=== PATIENT | female | born 1975 | race Caucasian/White ===

== ENCOUNTER 2017-04-30 17:33 | Emergency (ER) | payer OTHER ==
[2017-04-30 17:49] VITALS: TEMP 98.2; BMI 33.7
--- NOTE | 2017-04-30 18:13 | PDOC ---
History of Present Illness - General Chief Complaint: Blood Pressure Problem Stated Complaint: PRESSURE PROBLEM (PCP SENT) Time Seen by Provider: 04/30/17 17:58 History Source: Patient - History of Present Illness Severity: severe Associated Symptoms: reports: headaches, nausea/vomiting. denies: chest pain, shortness of breath Past History - Past Medical History Allergies/Adverse Reactions: Allergies Allergy/AdvReac Type Severity Reaction Status Date / Time No Known Allergies Allergy Verified 01/16/16 15:11 Home Medications: Ambulatory Orders Ibuprofen [Motrin -] 600 mg PO TID #21 tablet 01/16/16 Amlodipine Besylate 10 mg PO DAILY 30 Days 04/30/17 Asthma: No Cancer: No Cardiac Disorders: No Diabetes: Yes (GESTATIONAL) HTN: Yes Suicide Attempt (Hx): No Seizures: No Thyroid Disease: No - Surgical History Abdominal Surgery: Yes Appendectomy: Yes Cholecystectomy: Yes - Immunization History Td Vaccination: Yes Immunization Up to Date: Yes - Psycho/Social/Smoking Cessation Hx Anxiety: No Suicidal Ideation: No Smoking Status: No Smoking History: Current every day smoker Have you smoked in the past 12 months: Yes Number of Cigarettes Smoked Daily: 4 Information on smoking cessation initiated: Yes 'Breaking Loose' booklet given: 04/30/17 Hx Alcohol Use: No Drug/Substance Use Hx: No Substance Use Type: None Hx Substance Use Treatment: No Review of Systems - Review of Systems Constitutional: No: Chills, Fever Respiratory: No: Shortness of Breath Cardiac (ROS): No: Chest Pain ABD/GI: Yes: Nausea. No: Vomiting Musculoskeletal: No: Back Pain, Neck Pain Neurological: Yes: Headache, Numbness. No: Tingling, Weakness, Dizziness *Physical Exam - Vital Signs Last Vital Signs Temp Pulse Resp BP Pulse Ox 98.2 F 88 18 180/110 100 04/30/17 17:37 04/30/17 17:37 04/30/17 17:37 04/30/17 17:43 04/30/17 17:37 - Physical Exam General Appearance: Yes: Appropriately Dressed, Mild Distress HEENT: positive: Normal Voice. negative: Scleral Icterus (R), Scleral Icterus ( L) Neck: positive: Supple Respiratory/Chest: positive: Lungs Clear, Normal Breath Sounds. negative: Respiratory Distress Cardiovascular: positive: Regular Rate, S1, S2 Gastrointestinal/Abdominal: positive: Soft. negative: Tender Integumentary: positive: Dry, Warm Neurologic: positive: Fully Oriented, Alert, Normal Mood/Affect, Motor Strength 5/5, Finger to Nose. negative: Facial Droop ED Treatment Course - LABORATORY CBC & Chemistry Diagram: 04/30/17 18:22 04/30/17 18:22 - RADIOLOGY Radiology Studies Ordered: Category Date Time Status HEAD CT WITHOUT CONTRAST [CT] Stat CT Scan 04/30/17 17:59 Ordered Medical Decision Making - Medical Decision Making 04/30/17 18:08 42-year-old female, history of hypertension, was on meds but taken off several years ago as blood pressure was well controlled as per patient, states for the past several months blood pressure has been "getting higher" at doctor's visit and today was 180/110 and sent to ED by her PMD. Patient complaining of severe frontal headache that started at noon today and nausea 2 weeks with intermittent numbness to fingers of unclear duration. Patient denies dizziness , visual changes, slurred speech, focal weakness, chest pain or shortness of breath See exam Hypertensive crises BP 180/110 w/ unremarkable exam otherwise -ekg/cxr/labs r/o EOD -manage BP -Pain control -discuss dispo w/ Dr Pro (pmd) 04/30/17 18:18 05/02/17 08:16 *DC/Admit/Observation/Transfer Diagnosis at time of Disposition: Hypertension - Discharge Dispostion Disposition: HOME Condition at time of disposition: Stable - Prescriptions Prescriptions: Amlodipine Besylate 10 mg PO DAILY 30 Days - Referrals Referrals: Meghan Pro MD [Primary Care Provider] - - Patient Instructions Printed Discharge Instructions: DI for High Blood Pressure Additional Instructions: Rx: Amlodipine 10mg take 1 tablet daily I SPOKE TO DR. SHARPE WHO WANTS YOU TO; FOLLOW UP WITH DR. MILIAN ON WEDNESDAY MORNING TAKE AMLODIPINE 10 MG 1 TABLET DAILY return to the ER for severe/persistent/worsening symptoms
[2017-04-30] MEDS ORDERED: LABETALOL HCL 5 MG/1 ML (100MG/20 ML VIAL) IVPUSH ONE (18:14)
[2017-04-30] MEDS ORDERED: LABETALOL HCL 5 MG/1 ML (200MG/40ML VIAL) IVPB ONE (18:15)
[2017-04-30] MEDS: METOCLOPRAMIDE HCL INJECTION 10 MG/2 ML VIAL IVPB ONE ×2 (18:35→19:19)
[2017-04-30 18:46] LABS: BASOPHIL 0.9 % (0-2.0); MCH 29.9 pg (25.7-33.7); MEAN CELL VOLUME 90.6 fl (80-96); MEAN PLT VOLUME 8.2 fl (7.5-11.1); NEUTROPHILS 69.1 % (42.8-82.8); PLATELET COUNT 218 K/MM3 (134-434); RDW 13.7 % (11.6-15.6); WHITE BLOOD COUNT 8.5 K/mm3 (4.0-10.0)
[2017-04-30 19:10] LABS: ALBUMIN 3.9 g/dl (3.4-5.0); ANION GAP 7 (8-16); BILIRUBIN,TOTAL 0.3 mg/dL (0.2-1.0); CALCIUM 8.8 mg/dL (8.5-10.1); CO2 27 mmol/L (21-32); CREATININE 0.8 mg/dL (0.55-1.02); GLUCOSE,RANDOM 84 mg/dL (74-106); SGOT/AST 23 U/L (15-37); TOT PROT 7.5 g/dl (6.4-8.2)
[2017-04-30 19:11] LABS: ALK PHOS 62 U/L (45-117); SGPT/ALT 32 U/L (12-78)
[2017-04-30] MEDS ORDERED: METOCLOPRAMIDE HCL INJECTION 10 MG/2 ML VIAL ONE (19:15)
[2017-04-30 20:49] LABS: URINE APPEARANCE CLEAR; URINE BILIRUBIN NEGATIVE (NEGATIVE); URINE BLOOD 2+ (NEGATIVE); URINE COLOR STRAW; URINE GLUCOSE (UA) NEGATIVE (NEGATIVE); URINE KETONE NEGATIVE (NEGATIVE); URINE LEUK ESTERASE NEGATIVE (NEGATIVE); URINE NITRITE NEGATIVE (NEGATIVE); URINE PROTEIN NEGATIVE (NEGATIVE); URINE UROBILINOGEN NEGATIVE E.U./dl (0.2-1.0)
[2017-04-30 20:50] LABS: URINE MUCUS RARE; URINE RBC 4 /hpf (0-3); URINE WBC <1 /hpf (3-5)
[2017-04-30 21:06] VITALS: BP 150/100; PULSE 67
--- NOTE | 2017-04-30 21:31 | PDOC ---
*Physical Exam - Vital Signs Last Vital Signs Temp Pulse Resp BP Pulse Ox 98.2 F 67 19 150/100 98 04/30/17 17:37 04/30/17 21:05 04/30/17 21:05 04/30/17 21:05 04/30/17 21:05 - Physical Exam Comments: 04/30/17 21:30 2130hrs: Called Dr. Meghan Milian [phone]/pt's PMD...Dr. Sharpe is personnel security specialist ED Treatment Course - LABORATORY CBC & Chemistry Diagram: 04/30/17 18:22 04/30/17 18:22 - ADDITIONAL ORDERS Additional order review: Laboratory Results 04/30/17 04/30/17 20:25 18:22 Sodium 138 Potassium 4.3 Chloride 104 Carbon Dioxide 27 Anion Gap 7 L BUN 17 Creatinine 0.8 Creat Clearance w eGFR > 60 Random Glucose 84 Calcium 8.8 Total Bilirubin 0.3 D AST 23 D ALT 32 D Alkaline Phosphatase 62 D Total Protein 7.5 Albumin 3.9 Urine Color Straw Urine Appearance Clear Urine pH 5.0 Urine Protein Negative Urine Glucose (UA) Negative Urine Ketones Negative Urine Blood 2+ H Urine Nitrite Negative Urine Bilirubin Negative Urine Urobilinogen Negative Ur Leukocyte Esterase Negative Urine RBC 4 Urine WBC <1 Ur Epithelial Cells Rare Urine Mucus Rare 04/30/17 18:22 RBC 4.52 MCV 90.6 MCHC 33.0 RDW 13.7 D MPV 8.2 Neutrophils % 69.1 Lymphocytes % 22.8 D Monocytes % 5.2 Eosinophils % 2.0 D Basophils % 0.9 - Medications Given in the ED: ED Medications Discontinued Medications Generic Name Dose Route Start Last Admin Trade Name Kirsty PRN Reason Stop Dose Admin Labetalol HCl 20 mg 04/30/17 18:14 04/30/17 18:35 Normodyne Injection - IVPUSH 04/30/17 18:15 20 mg ONCE ONE Administration Metoclopramide HCl 10 mg 04/30/17 18:07 04/30/17 19:19 Reglan Injection - IVPB 04/30/17 18:08 10 mg ONCE ONE Administration Progress Note - Progress Note Progress Note: 9hrs: Spoke to Dr. Sharpe/covering Dr. Meghan Milian. Advise to D/C pt to f/u with Dr. Hussein Chuy am. D/c with Amlodipine 10mg qd *DC/Admit/Observation/Transfer Diagnosis at time of Disposition: Hypertension Qualifiers: Hypertension type: unspecified secondary hypertension Qualified Code(s): I15.9 - Secondary hypertension, unspecified; I15 - Secondary hypertension - Discharge Dispostion Disposition: HOME Condition at time of disposition: Stable Admit: No - Referrals Referrals: Meghan Pro MD [Primary Care Provider] - - Patient Instructions Printed Discharge Instructions: DI for High Blood Pressure Additional Instructions: Rx: Amlodipine 10mg take 1 tablet daily I SPOKE TO DR. SHARPE WHO WANTS YOU TO; FOLLOW UP WITH DR. MILIAN ON WEDNESDAY MORNING TAKE AMLODIPINE 10 MG 1 TABLET DAILY return to the ER for severe/persistent/worsening symptoms
[2017-04-30 21:58] LABS: TROPONIN I < 0.02 ng/ml (0.00-0.05)
--- NOTE | 2017-05-02 21:48 | EKG ---
Test Reason : Blood Pressure : / mmHG Vent. Rate : 072 BPM Atrial Rate : 072 BPM P-R Int : 162 ms QRS Dur : 092 ms QT Int : 404 ms P-R-T Axes : 048 -05 037 degrees QTc Int : 442 ms NORMAL SINUS RHYTHM NORMAL ECG WHEN COMPARED WITH ECG OF 25-DEC-2010 17:12, NO SIGNIFICANT CHANGE WAS FOUND Confirmed by ROHAN NARANJO MD ([id number]) on 05/02/2017 9:48:04 PM Referred By: Confirmed By:ROHAN NARANJO MD
== END 2017-04-30 22:16 | disposition home or self-care (01) ==
LOC: JER 17:33
PROC: 3E033GC Introduction of Other Therapeutic Substance into Peripheral Vein, Percutaneous Approach (ICD-10-PCS; principal; 2017-04-30)
PROC: 3E033GC Introduction of Other Therapeutic Substance into Peripheral Vein, Percutaneous Approach (ICD-10-PCS; 2017-04-30)
DX: I10 Essential (primary) hypertension (principal); I15.9 Secondary hypertension, unspecified
CPT/HCPCS: 36415; 70450-TC; 80053; 81003; 81015; 82550; 82553; 84484; 84703; 85025; 93005; 93010; 96374; 96375; 99283-25

== ENCOUNTER 2017-10-23 09:02 | Emergency (ER) | payer OTHER ==
[2017-10-23 09:14] VITALS: BP 154/107; PULSE 84; TEMP 97.8; BMI 33.6
--- NOTE | 2017-10-23 10:48 | PDOC ---
History of Present Illness - General Chief Complaint: Injury Stated Complaint: FALL/ LT HAND PAIN Time Seen by Provider: 10/23/17 10:23 History Source: Patient Exam Limitations: No Limitations - History of Present Illness Initial Comments: 10/23/17 11:47 My chief complaint: Left hand pain History of present illness: Patient is a 42-year-old female with history of hypertension here today complaining of pain over her fifth metacarpal joint after hitting it last night on a pole when she slid on snow. Patient has noticeable swelling and bruising to area. Patient reports that she took ibuprofen without any relief of pain. Patient denies any chance of and tubal ligation. Patient denies any numbness of her left hand. Occurred: reports: yesterday Severity: reports: severe (left hand over 5th mcp jkt ) Pain Location: reports: upper extremity (left 5 th mcp jt ) Method of Injury: Yes: direct blow (to a metal pole ) Modifying Factors: improves with: None Loss of Consciousness: no loss of consciousness Associated Symptoms (Fall): denies symptoms Past History - Past Medical History Allergies/Adverse Reactions: Allergies Allergy/AdvReac Type Severity Reaction Status Date / Time No Known Allergies Allergy Verified 10/23/17 09:14 Home Medications: Ambulatory Orders Ibuprofen [Motrin -] 600 mg PO TID #21 tablet 01/16/16 Amlodipine Besylate 10 mg PO DAILY 30 Days tablet 04/30/17 Oxycodone HCl/Acetaminophen [Percocet 5-325 mg Tablet] 1 tab PO Q6H PRN #10 tablet MDD 4 10/23/17 Asthma: No Cancer: No Cardiac Disorders: No COPD: No Diabetes: No HTN: Yes Kidney Stones: Yes Seizures: No Thyroid Disease: No - Surgical History Abdominal Surgery: Yes Appendectomy: Yes Cholecystectomy: Yes - Immunization History Td Vaccination: Yes Immunization Up to Date: Yes - Suicide/Smoking/Psychosocial Hx Smoking Status: No Smoking History: Current every day smoker Have you smoked in the past 12 months: Yes Number of Cigarettes Smoked Daily: 6 Information on smoking cessation initiated: Yes 'Breaking Loose' booklet given: 10/23/17 Hx Alcohol Use: No Drug/Substance Use Hx: No Substance Use Type: None Hx Substance Use Treatment: No Review of Systems - Review of Systems Able to Perform ROS?: Yes Constitutional: No: Symptoms Reported HEENTM: No: Symptoms Reported Respiratory: No: Symptoms reported Cardiac (ROS): No: Symptoms Reported ABD/GI: No: Symptoms Reported Musculoskeletal: Yes: Joint Pain (left hand 5 mcp jt ), Joint Swelling (left 5 th mcp jt ) Integumentary: Yes: Bruising (left hand over 5th mcp jt ) Neurological: No: Symptoms reported *Physical Exam - Vital Signs Last Vital Signs Temp Pulse Resp BP Pulse Ox 97.8 F 84 20 154/107 98 10/23/17 09:12 10/23/17 09:12 10/23/17 09:12 10/23/17 09:12 10/23/17 09:12 - Physical Exam General Appearance: Yes: Appropriately Dressed Comments:: 10/23/17 10:48 radial pulse 4 + left Extremity: positive: Normal Capillary Refill, Normal Range of Motion, Tender ( point tenderness over 5 th mcp jt ), Swelling (over 5th mcpjt ). negative: Normal Inspection Integumentary: positive: Ecchymosis (over 5th left mcp jt palmar/dorsal aspect ) Neurologic: positive: Normal Response, Respond to painful stimul (left hand/ digits ), Responsive. negative: Numbness, Sensory Deficit Procedures - Consent Consent obtained: From Patient - Splinting Splint Location: Left: Hand, Wrist Pre-Proc Neuro Vasc Exam: normal Pre-Made Type: aircast Hand-Made Type: orthoglass Splint Type: Yes: Short Arm (left hand/ forearm ) Post-Proc Neuro Vasc Exam: normal Sylvain Bandage: 3" Sling: No Complications: No Medical Decision Making - Medical Decision Making 10/23/17 11:43 Patient is a 42-year-old female with history of hypertension here today complaining of pain over her fifth metacarpal joint after hitting it last night on a pole when she slid on snow. Patient has noticeable swelling and bruising to area. Patient reports that she took ibuprofen without any relief of pain. Patient denies any chance of and tubal ligation. Patient denies any numbness of her left hand. left hand pain/swelling rule out fracture fracture left 5th mcp jt PLAN: xray left hand/wrist fracture left 5th mcp jt distal aspect percocet 5mg /325 mg po now than q 6 hr prn pain # 10 orthoglass splint applied left hand/forearm follow up with ortho 10/23/17 11:48 *DC/Admit/Observation/Transfer Diagnosis at time of Disposition: Fracture of metacarpal bone of left hand - Discharge Dispostion Disposition: HOME Condition at time of disposition: Stable - Referrals Referrals: Meghan Pro MD [Primary Care Provider] - Jesus Ngo MD [Staff Physician] - - Patient Instructions Additional Instructions: Follow-up with orthopedist as soon as possible for further evaluation Apply ice to left hand every 2 hours while awake today Return to emergency room if any numbness of your left hand or discoloration of fingers Patient voiced understanding of discharge instructions all questions were answered - Post Discharge Activity Forms/Work/School Notes: Back to Work
== END 2017-10-23 12:22 | disposition home or self-care (01) ==
LOC: JERFT 09:02
PROC: 2W3DX1Z Immobilization of Left Lower Arm using Splint (ICD-10-PCS; principal; 2017-10-23)
DX: S62.397A Other fracture of fifth metacarpal bone, left hand, initial encounter for closed fracture (principal); W00.2XXA Other fall from one level to another due to ice and snow, initial encounter; Y93.89 Activity, other specified; Y92.89 Other specified places as the place of occurrence of the external cause; Y99.8 Other external cause status
CPT/HCPCS: 29125; 73110-TC-LT; 73130-TC-LT; 99281-25

== ENCOUNTER 2018-03-15 11:00 | Inpatient (IN) | payer OTHER ==
[2018-03-21 09:57] VITALS: BMI 36.8
[2018-03-22] MEDS ORDERED: ceFAZolin SODIUM 1 GM VIAL ONE (09:23)
[2018-03-22] MEDS ORDERED: SUCCINYLCHOLINE CHLORIDE 200 MG/10 ML VIAL ONE (09:23)
[2018-03-22] MEDS ORDERED: PROPOFOL 20 ML ONE (09:23)
[2018-03-22] MEDS ORDERED: ROCURONIUM BROMIDE 50 MG/5 ML VIAL ONE (09:23)
[2018-03-22] MEDS ORDERED: LIDOCAINE HCL/PF 2% SDV 5ML VIAL ONE (09:23)
[2018-03-22] MEDS ORDERED: MIDAZOLAM HCL 2 MG/2 ML SINGLE DOSE VIAL ONE ×2 (09:23→10:20)
[2018-03-22] MEDS ORDERED: fentaNYL CITRATE 250 MCG/5 ML VIAL ONE (09:23)
[2018-03-22] MEDS ORDERED: DEXAMETHASONE SOD PHOSPHATE 4 MG/1 ML VIAL ONE (09:23)
[2018-03-22] MEDS ORDERED: NEOSTIGMINE METHYLSULFATE 0.5 MG/ML - 10 ML MDV ONE (10:10)
[2018-03-22] MEDS ORDERED: GLYCOPYRROLATE 0.2 MG/1 ML VIAL ONE (10:10)
[2018-03-22] MEDS ORDERED: SCOPOLAMINE HYDROBROMIDE 1 PATCH PATCH.TD72 ONE (10:18)
[2018-03-22] MEDS ORDERED: ROPIVACAINE HCL 0.5% 30ML VIAL ONE (10:18)
--- NOTE | 2018-03-22 10:39 | HP ---
Admitting History and Physical - Admission Chief Complaint: Morbid obesity History of Present Illness: Morbid obesity History Source: Patient Limitations to Obtaining History: No Limitations - Past Medical History Cardiovascular: Yes: HTN Pulmonary: Yes: Sleep Apnea ...LMP: 02/26/18 - Past Surgical History Past Surgical History: Yes: Appendectomy, Cholecystectomy, - Smoking History Smoking history: Former smoker Have you smoked in the past 12 months: No Aproximately how many cigarettes per day: 6 If you are a former smoker, when did you quit?: 2months - Alcohol/Substance Use Hx Alcohol Use: No (occas) Home Medications - Allergies Allergies/Adverse Reactions: Allergies Allergy/AdvReac Type Severity Reaction Status Date / Time No Known Allergies Allergy Verified 03/22/18 09:03 - Home Medications Home Medications: Ambulatory Orders Aspirin [ASA -] 650 mg PO PRN PRN 03/21/18 Candesartan/Hydrochlorothiazid [Candesartan-Hctz 32-25 mg Tab] 2 each PO DAILY 03/21/18 Gabapentin 300 mg PO UTDICT PRN 03/21/18 Nifedipine ER [Procardia Xl -] 30 mg PO DAILY 03/21/18 Acetaminophen [Tylenol -] 500 mg PO PRN PRN 03/22/18 Famotidine [Pepcid] 20 mg PO BID #60 tablet 03/22/18 Loratadine [Claritin] 10 mg PO PRN PRN 03/22/18 Oxycodone HCl/Acetaminophen [Percocet 5-325 mg Tablet] 1 - 2 tab PO Q6H #28 tab MDD 4 03/22/18 Family Disease History - Family Disease History Family History: Unremarkable Review of Systems - Review of Systems Constitutional: denies: Chills, Fever Neck: reports: No Symptoms Cardiovascular: reports: No Symptoms Respiratory: reports: No Symptoms Gastrointestinal: denies: Abdominal Pain Neurological: reports: No Symptoms Pain Intensity: 0 Physical Examination Vital Signs: Vital Signs Temperature 98.5 F 03/22/18 08:47 Pulse Rate 74 03/22/18 08:47 Respiratory Rate 18 03/22/18 08:47 Blood Pressure 140/64 03/22/18 08:47 O2 Sat by Pulse Oximetry (%) 98 03/22/18 08:46 Constitutional: Yes: Calm HENT: Yes: WNL Neck: Yes: WNL Cardiovascular: Yes: WNL Respiratory: Yes: WNL Gastrointestinal: Yes: Soft, Abdomen, Obese Neurological: Yes: Alert, Oriented Problem List - Problems (1) Morbid (severe) obesity due to excess calories Code(s): E66.01 - MORBID (SEVERE) OBESITY DUE TO EXCESS CALORIES Assessment/Plan Laparoscopic possible open vertical sleeve gastrectomy possible lievr biopsy, EGD
[2018-03-22] MEDS ORDERED: ceFAZolin SODIUM 1 GM VIAL IVPB ONE (11:30)
[2018-03-22] MEDS ORDERED: BUPIVACAINE HCL/PF 0.5% (5MG/ML) 10 ML VIAL IJ ONE ×2 (12:11→12:30)
[2018-03-22] MEDS ORDERED: METOCLOPRAMIDE HCL INJECTION 10 MG/2 ML VIAL ONE (13:09)
[2018-03-22] MEDS ORDERED: ACETAMINOPHEN INJECTION 100 ML IVPB ONE (13:09)
[2018-03-22] MEDS ORDERED: ONDANSETRON 4 MG/2 ML VIAL ONE (13:09)
[2018-03-22] MEDS: ACETAMINOPHEN 1000 MG/100 ML VIAL (NON FORMULARY) IVPB SCH ×2 (13:10→18:42)
[2018-03-22] MEDS: ONDANSETRON 4 MG/2 ML VIAL IVPUSH SCH ×3 (13:10→21:13)
[2018-03-22] MEDS ORDERED: LORATADINE 10 MG TABLET PO PRN (13:16)
--- NOTE | 2018-03-22 13:19 | OP ---
Operative Note - Note: Operative Date: 03/22/18 Pre-Operative Diagnosis: morbid obesity Operation: laparoscopic vertical sleeve gastrectomy, liver biospy, upper endoscopy Surgeon: Jean Art Entry Clerk: Joan Martinez Anesthesiologist/PRUNER: Areli Durant Anesthesia: General Specimens Removed: liver biopsy, stomach Estimated Blood Loss (mls): 30 Fluid Volume Replaced (mls): 1,000 Operative Report Dictated: Yes
--- NOTE | 2018-03-22 13:21 | SURG ---
Surgery Business Continuity Management Director Note Business Continuity Management Director: Joan Martinez PA-C Date of Service: 03/22/18 Diagnosis: morbid obesity Procedure: laparscopic vertical sleeve gastrectomy, liver biopsy, upper endoscopy I was present for the entirety of the operative procedure. For further detail, please refer to operative report. Visit type - Case Type Case Type: Scheduled - Emergency Emergency Visit: No - New patient This patient is new to me today: Yes Date on this admission: 03/22/18
[2018-03-22] MEDS: METOCLOPRAMIDE HCL INJECTION 10 MG/2 ML VIAL IVPUSH SCH ×2 (13:30→19:36)
--- NOTE | 2018-03-22 13:46 | SPEC ---
DATE OF OPERATION: 03/22/2018 SURGEON: Jean Art MD CHILD CARE SPECIALIST: JORGITO White PREOPERATIVE DIAGNOSES: 1. Morbid obesity. 2. Hypertension. 3. Sleep apnea. 4. Body mass index of 36.9. POSTOPERATIVE DIAGNOSES: 1. Morbid obesity. 2. Hypertension. 3. Sleep apnea. 4. Body mass index of 36.9. 5. Hepatomegaly. PROCEDURE: 1. Laparoscopic vertical sleeve gastrectomy. 2. Laparoscopic wedge liver biopsy. 3. Esophagogastroduodenoscopy. SPECIMEN: 1. Greater curvature of the stomach. 2. Wedge liver biopsy. BOUGIE: Size 36-Iranian. ESTIMATED BLOOD LOSS: 30 mL DRAINS: None. ANESTHESIA: GET. REASON FOR PROCEDURE: This is a 43-year-old female who presented to the office for weight loss options. After describing different options, she decided to proceed with a laparoscopic, possible open vertical sleeve gastrectomy, possible liver biopsy , and upper endoscopy. Risks and benefits of the procedure were explained. RISKS AND BENEFITS: After describing the different options for weight loss management, the patient decided to proceed with a laparoscopic, possible open vertical sleeve gastrectomy. The patient was seen by the respective subspecialties and cleared for surgery. The risks and benefits of the procedure were explained. These included bleeding, infection, hernia, AK, DVT, PE, injury to surrounding structures including the liver, colon, bowel, spleen, esophagus, vessel injury, nerve injury, weight regain, gastric leak, staple line leak, sleeve leak, obstruction, vitamin deficiency, hair loss and as some of the possible complications. The patient understood and signed informed consent. DESCRIPTION OF PROCEDURE: The patient was placed supine on the operating room table. The patient underwent general endotracheal intubation. A Martines catheter was inserted. The arms were brought out at 90 degrees and secured. A footboard was placed and the legs were secured laterally with padding. The abdomen was prepped and draped in the usual sterile fashion. A timeout was performed. An incision was made in the left upper quadrant and a Veress needle inserted. Pneumoperitoneum was established. Subsequently, the Veress needle was removed and a 5-mm trocar was placed. The laparoscopic camera was then inserted and inspection of the abdominal cavity was performed. An incision was then made in the supraumbilical area and a 15-mm trocar was placed under direct visualization. A 5-mm trocar was then placed in the right upper quadrant and a 5-mm trocar was placed below the left subcostal margin. A stab wound was made in the subxiphoid area and a Flori clamp inserted and removed to dilate the tract. A Alexa liver retractor was inserted. The post was secured at the bedside by the nursing staff. The patient was placed in steep reverse Trendelenburg position and the Alexa liver retractor was used to secure the liver towards the anterior abdominal wall. The pylorus was identified and 6 cm proximal to it, the lesser sac was entered using the LigaSure device. All lateral attachments to the greater curvature of the stomach, including the short gastric vessels, were ligated using the LigaSure device toward the gastrosplenic and gastrophrenic ligaments. Once this was done in its entirety, it was confirmed that all tubes within the nasal or oropharyngeal cavity, including a temperature probe, was removed by Anesthesia. The bougie was then inserted by Anesthesia. Transection of the stomach was then begun staying adjacent to the bougie but away from the angularis. Transection of the stomach was performed near the portion of the stomach where the lesser sac was entered. Two laparoscopic Endo-CHASITY black kimi were used at this location. Laparoscopic Endo CHASITY purple staple loads were then used for the remainder of the transection until the greater curvature of the stomach was fully transected. This was done staying close to the bougie. Care was taken to stay away from the angle of His cephalad. The staple line was then inspected. Hemostasis was identified. A leak test was then performed. It was clamped distally to the staple line. Irrigation solution was placed in the left upper quadrant and air was insufflated by Anesthesia into the sleeve. No leaks were identified. No obstruction was identified. This was done through the entirety of the staple line. At this point, the irrigation solution was suctioned and again , hemostasis was noted. A wedge liver biopsy was then performed. The left lobe of the liver was identified and a portion of the edge was grasped. Using electrocautery, a wedge of the liver was excised. This was removed and sent off the field as specimen. Hemostasis at the site of the wedge liver biopsy was attained using electrocautery. The 15-mm supraumbilical trocar was then removed and the greater curvature specimen removed from the site using a sponge stick wong. The specimen was inspected and a Veress needle inserted. The specimen insufflated adequately and no leak was identified. The staple line was noted to be intact. A Lan-[place] device was then used to close the fascia with a 0 Vicryl suture at the 15-mm trocar site. Again, hemostasis was noted. The Alexa liver retractor was then removed under direct visualization. Pneumoperitoneum was desufflated and the fascial sutures were secured. Hemostasis was noted at all incision sites and Marcaine was injected at all incision sites. All incision sites were closed using 4-0 Biosyn. Sterile dressings were applied. The patient tolerated the procedure well and was transferred to the recovery room in stable condition with the Martines catheter intact. The patient was transferred to telemetry for further monitoring. In addition, at the end of the case, an upper endoscopy was performed to evaluate for leak and/or obstruction. Endoscope was placed through the patient's mouth, and the esophagus, GE junction, gastric staple line, and pouch were inspected and hemostasis was noted. No leak or obstruction was noted. The stomach was suctioned and the endoscope removed. Patient tolerated the procedure well, was transferred to recovery room in stable condition. Melissa [id number] MTDD
[2018-03-22 14:07] LABS: HEMATOCRIT 40.8 % (32.4-45.2); HEMOGLOBIN 13.9 GM/dL (10.7-15.3); MEAN CELL VOLUME 91.1 fl (80-96); MEAN PLT VOLUME 7.8 fl (7.5-11.1); PLATELET COUNT 197 K/MM3 (134-434); RBC 4.48 M/mm3 (3.60-5.2); RDW 13.4 % (11.6-15.6); WHITE BLOOD COUNT 10.1 K/mm3 (4.0-10.0)
[2018-03-22 14:32] LABS: ANION GAP 9 (8-16); BLOOD UREA NITROGEN 14 mg/dL (7-18); CALCIUM 8.6 mg/dL (8.5-10.1); CHLORIDE 102 mmol/L (98-107); CO2 27 mmol/L (21-32); CREATININE 0.9 mg/dL (0.55-1.02); GLUCOSE,RANDOM 126 mg/dL (74-106); SGOT/AST 74 U/L (15-37); SGPT/ALT 87 U/L (12-78); SODIUM 138 mmol/L (136-145)
[2018-03-22 14:34] LABS: ALK PHOS 53 U/L (45-117); BILIRUBIN,TOTAL 0.4 mg/dL (0.2-1.0); TOT PROT 7.8 g/dl (6.4-8.2)
[2018-03-22] MEDS ORDERED: LACTATED RINGERS SOLUTION 1,000 ML IV SCH (14:45)
[2018-03-22] MEDS: SODIUM CHLORIDE 1,000 ML IV SCH (15:00)
[2018-03-22] MEDS: morphine SULFATE 4 MG/ML VIAL IVPUSH PRN ×2 (15:51→20:07)
[2018-03-22] MEDS: ENOXAPARIN NA (PORCINE) 40 MG/0.4 ML DISP.SYRIN SQ SCH (21:13)
[2018-03-22] MEDS: FAMOTIDINE 20 MG/50 ML IVPB 20 MG/50 ML MG IVPB SCH (21:13)
[2018-03-23] MEDS: METOCLOPRAMIDE HCL INJECTION 10 MG/2 ML VIAL IVPUSH SCH ×3 (00:27→13:51)
[2018-03-23] MEDS: morphine SULFATE 4 MG/ML VIAL IVPUSH PRN ×4 (00:29→15:23)
[2018-03-23] MEDS: SODIUM CHLORIDE 1,000 ML IV SCH ×2 (00:34→13:50)
[2018-03-23] MEDS: ONDANSETRON 4 MG/2 ML VIAL IVPUSH SCH ×4 (00:34→13:51)
[2018-03-23] MEDS: ACETAMINOPHEN 1000 MG/100 ML VIAL (NON FORMULARY) IVPB SCH ×2 (00:34→06:29)
[2018-03-23 06:18] LABS: HEMATOCRIT 32.2 % (32.4-45.2); HEMOGLOBIN 11.4 GM/dL (10.7-15.3); MCH 32.4 pg (25.7-33.7); MCHC 35.4 g/dl (32.0-36.0); MEAN CELL VOLUME 91.6 fl (80-96); MEAN PLT VOLUME 7.5 fl (7.5-11.1); PLATELET COUNT 200 K/MM3 (134-434); RBC 3.52 M/mm3 (3.60-5.2); RDW 13.6 % (11.6-15.6); WHITE BLOOD COUNT 10.6 K/mm3 (4.0-10.0)
[2018-03-23 06:52] LABS: CHLORIDE 104 mmol/L (98-107); SODIUM 141 mmol/L (136-145)
[2018-03-23 07:08] LABS: ALBUMIN 3.5 g/dl (3.4-5.0); ALK PHOS 43 U/L (45-117); ANION GAP 8 (8-16); BILIRUBIN,TOTAL 0.6 mg/dL (0.2-1.0); BLOOD UREA NITROGEN 11 mg/dL (7-18); CALCIUM 8.2 mg/dL (8.5-10.1); CO2 29 mmol/L (21-32); CREATININE 0.9 mg/dL (0.55-1.02); GLUCOSE,RANDOM 88 mg/dL (74-106); SGOT/AST 57 U/L (15-37); SGPT/ALT 79 U/L (12-78); TOT PROT 6.7 g/dl (6.4-8.2)
--- NOTE | 2018-03-23 08:30 | PN ---
Progress Note (short form) - Note Progress Note: POD #1 - s/p lap sleeve gastrectomy under GA with TAP blocks. VSS. Pt. doing well, resting comfortably in bed. No complaints. No apparent anesthetic complications noted. Continue current care.
[2018-03-23] MEDS ORDERED: NIFEdipine E.R. 30 MG TABLET (FP) PO SCH (10:00)
[2018-03-23] MEDS: ENOXAPARIN NA (PORCINE) 40 MG/0.4 ML DISP.SYRIN SQ SCH (10:43)
[2018-03-23] MEDS: FAMOTIDINE 20 MG/50 ML IVPB 20 MG/50 ML MG IVPB SCH (10:43)
--- NOTE | 2018-03-23 10:44 | PN ---
Progress Note (short form) - Note Progress Note: POD #1 Alert. Doing well. OOB and ambulating unassisted. Voiding spontaneosuly. C/o mild incisional tenderness. Adequate pain control via prn meds. Denies n/v/f/c, CP or SOB. Last Vital Signs Temp Pulse Resp BP Pulse Ox 98.1 F 67 20 143/95 99 03/23/18 06:40 03/23/18 06:40 03/23/18 06:40 03/23/18 06:40 03/22/18 20:26 UGI: no leak, extravasation or outlet obstruction. Gen: nad ABD: all surgical ports c/d/i LE: SCDs bilat. Soft. NT <Blake Pacheco - Last Filed: 03/23/18 10:38> - Note Progress Note: Agree POD 1 Pain controlled AVSS Abd soft UGI: no leak/obstructtion Clears Discharge planning <Jean Art - Last Filed: 03/23/18 13:04> Problem List - Problems (1) Morbid (severe) obesity due to excess calories Assessment/Plan: POD #1 s/p lap vertical sleeve gastrectomy, liver wedge biopsy, egd Bariatric Stage 1 diet ordered Cont OOB and ambulate Incentive spirometer Pain management prn dc planning Code(s): E66.01 - MORBID (SEVERE) OBESITY DUE TO EXCESS CALORIES <Blake Pacheco P - Last Filed: 03/23/18 10:38> - Problems (1) Morbid (severe) obesity due to excess calories Code(s): E66.01 - MORBID (SEVERE) OBESITY DUE TO EXCESS CALORIES <Jean Art - Last Filed: 03/23/18 13:04>
[2018-03-23 13:03] VITALS: BP 148/91; PULSE 63; TEMP 98.8
--- NOTE | 2018-03-25 13:32 | PATH ---
Surgical Pathology Report Patient Name: FENG SANCHEZ [facility]. Rec. #: [id number] /Age/Gender: 1975 (Age: 43) / F Account: [id number] Location: 4 SO PEDS/ADOL Taken: 03/22/2018 Received: 03/23/2018 Reported: 03/25/2018 Physicians: Jean Art M.D. Specimen(s) Received A: GREATER CURVATURE STOMACH B: LIVER BIOPSY Clinical History Morbid obesity Final Diagnosis A. GREATER CURVATURE STOMACH, LAPAROSCOPIC VERTICAL GASTRIC SLEEVE GASTRECTOMY: PORTION OF STOMACH WITH MILD CHRONIC GASTRITIS. IMMUNOSTAIN IS NEGATIVE FOR H. PYLORI ORGANISMS. NEGATIVE FOR INTESTINAL METAPLASIA. B. LIVER BIOPSY: LIVER TISSUE WITH MILD STEATOSIS (<30%). NO HISTOLOGIC EVIDENCE OF HEPATITIS. NO INCREASED FIBROSIS (TRICHROME STAIN) OR IRON (IRON STAIN) DEPOSITS. Electronically Signed Giuliano Kennedy M.D. Gross Description A. Received in formalin, labeled "greater curvature of stomach," is a 117 gram, 17.0 x 3.5 x 3.0 cm. portion of stomach with a stapled margin of resection. The serosa is rodríguez-kendall with minimal attached fat. The mucosa is rodríguez-pink with normal folds. No mucosal masses are identified. Fine Grader sections are submitted in one cassette. B. Received in formalin labeled "liver biopsy," is a 3.2 x 2.3 x 1.5 cm portion of rodríguez soft tissue, consistent with a liver biopsy. Fine Grader sections are submitted in one cassette. /03/23/2018 saudi/03/23/2018
== END 2018-03-23 16:25 | disposition home or self-care (01) | DRG 403 ==
LOC: JSAMEDAYSX 03-22 08:09 → J4S 03-22 15:35
PROVIDERS: ADMIT Surgery; ATTEND Surgery
PROC: 0DB64Z3 Excision of Stomach, Percutaneous Endoscopic Approach, Vertical (ICD-10-PCS; principal; 2018-03-22 10:00)
PROC: 0FB24ZX Excision of Left Lobe Liver, Percutaneous Endoscopic Approach, Diagnostic (ICD-10-PCS; 2018-03-22 10:00)
PROC: 0DJ08ZZ Inspection of Upper Intestinal Tract, Via Natural or Artificial Opening Endoscopic (ICD-10-PCS; 2018-03-22 10:00)
DX: E66.01 Morbid (severe) obesity due to excess calories (principal); I10 Essential (primary) hypertension; Z87.891 Personal history of nicotine dependence; G47.30 Sleep apnea, unspecified; Z68.36 Body mass index [BMI] 36.0-36.9, adult; R16.0 Hepatomegaly, not elsewhere classified
CPT/HCPCS: 36415; 74241-TC-FY; 80053; 84703; 85027; 86850; 86900; 86901; 94010; 94760; J0131; J7030

== ENCOUNTER 2018-04-29 14:27 | Emergency (ER) | payer OTHER ==
[2018-04-29 14:48] VITALS: TEMP 98; BMI 33.1
--- NOTE | 2018-04-29 14:49 | PDOC ---
Rapid Medical Evaluation Time Seen by Provider: 04/29/18 14:43 Medical Evaluation: Allergies Allergy/AdvReac Type Severity Reaction Status Date / Time No Known Allergies Allergy Verified 04/29/18 14:43 04/29/18 14:43 have performed a brief in-person evaluation of this patient. The patient presents with a chief complaint of: weak, dizzy and anorexia since gastric sleeve 03/22/[address] Art at [facility]. Currently on soft/puree/liquid diet. Seen by Kaelyn 1 week ago and told she might be dehydrated but pt refused to come in for IVF then. No sig abd pain or vomiting. Normal BM w/ no BRBR Pertinent physical exam findings:Unremarkable I have ordered the following:labs The patient will proceed to the ED for further evaluation Discharge Disposition - Diagnosis Weakness - Referrals - Patient Instructions - Post Discharge Activity
[2018-04-29] MEDS ORDERED: SODIUM CHLORIDE 1,000 ML IV STA ×2 (15:00→16:52)
--- NOTE | 2018-04-29 15:05 | PDOC ---
History of Present Illness - General Chief Complaint: Weakness Stated Complaint: WEAKNESS Time Seen by Provider: 04/29/18 14:43 - History of Present Illness Initial Comments: 04/29/18 15:26 43 year old female hx HTN, sleep apnea, and recent laparoscopic gastric sleeve (Dr. Art) presents to the Ed for 1 month history of weakness, lightheadedness, and inability to drink water. She states that after her surgery , she has been feeling full and had no desire to drink. She is able to eat normally, but does not drink water. Currently states she feels lightheaded. Denies any abdominal pain, nausea, vomiting, diarrhea, fevers, or chills, chest pain or shortness of breath. Allergies: none Smoking: none Alcohol: none Drugs: none PMD: Dr. Pro 04/29/18 15:42 Past History - Past Medical History Allergies/Adverse Reactions: Allergies Allergy/AdvReac Type Severity Reaction Status Date / Time No Known Allergies Allergy Verified 04/29/18 14:43 Home Medications: Ambulatory Orders Multivitamins [Tab-A-Vit -] 1 tab PO DAILY 04/29/18 Asthma: No Cancer: No Cardiac Disorders: No CVA: No COPD: No CHF: No Dementia: No Diabetes: (gestational) GI Disorders: Yes (acid reflux) Disorders: No HTN: Yes Hypercholesterolemia: No Kidney Stones: Yes Liver Disease: No Seizures: No Thyroid Disease: No - Surgical History Abdominal Surgery: Yes Appendectomy: Yes Cholecystectomy: Yes GI Surgery: Yes (GASTRIC SLEEVE) - Immunization History Td Vaccination: Yes Immunization Up to Date: Yes - Suicide/Smoking/Psychosocial Hx Smoking Status: No Smoking History: Former smoker Have you smoked in the past 12 months: No Number of Cigarettes Smoked Daily: 6 If you are a former smoker, when did you quit?: 2months Information on smoking cessation initiated: No 'Breaking Loose' booklet given: 10/23/17 Hx Alcohol Use: No (occas) Drug/Substance Use Hx: No Substance Use Type: Alcohol Hx Substance Use Treatment: No Review of Systems - Review of Systems Able to Perform ROS?: Yes Is the patient limited [place] proficient: No Constitutional: Yes: Loss of Appetite *Physical Exam - Vital Signs Last Vital Signs Temp Pulse Resp BP Pulse Ox 98 F 69 19 148/80 100 04/29/18 14:43 04/29/18 14:43 04/29/18 14:43 04/29/18 14:43 04/29/18 14:43 - Physical Exam Comments: 04/29/18 15:43 GENERAL: A&Ox3, no acute distress EYES: PERRLA, EOMI ENT: Dry mucus membranes NECK: No JVD LUNGS: CTA, no wheezes HEART: RRR, no murmurs ABDOMEN: Soft, nontender, BS present MUSCULOSKELETAL: No CVA Tenderness EXTREMITIES: 2+ pulses, no edema. NEUROLOGICAL: Cranial nerves II-XII intact. ED Treatment Course - LABORATORY CBC & Chemistry Diagram: 04/29/18 15:10 04/29/18 15:10 Medical Decision Making - Medical Decision Making 04/29/18 16:51 43 year old female s/p sleeve gastrectomy with 1 mo of decreased oral H2O intake -cbc -cmp -orthostatic vitals (sitting 135/91 - standing 142/94) -UA 04/29/18 17:46 -patient feels better after 2L NS -will d/c home with close f/u to surgery Dr. art *DC/Admit/Observation/Transfer Diagnosis at time of Disposition: Weakness, Dehydration - Discharge Dispostion Disposition: HOME Condition at time of disposition: Improved Decision to Admit order: No - Referrals Referrals: Meghan Pro MD [Primary Care Provider] - 7 days Pako Mckinney RES [Emergency Midlevel Provider] - - Patient Instructions Printed Discharge Instructions: DI for Dehydration -- Adult Additional Instructions: Follow up with Dr. Bronson's and Dr Art within 1 week. As discussed, do your best to drink plenty of water throughout the day, in small sips if more comfortable. Return to the emergency department if you have any new, worsening, or concerning symptoms. - Post Discharge Activity
[2018-04-29 15:14] LABS: BASO % 0.7 % (0-2.0); EOS % 0.8 % (0-4.5); HEMATOCRIT 33.5 % (32.4-45.2); HEMOGLOBIN 11.4 GM/dL (10.7-15.3); LYMPH % 25.3 % (8-40); MCH 31.3 pg (25.7-33.7); MCHC 34.1 g/dl (32.0-36.0); MEAN CELL VOLUME 91.8 fl (80-96); MEAN PLT VOLUME 8.5 fl (7.5-11.1); MONO % 3.8 % (3.8-10.2); NEUT % 69.4 % (42.8-82.8); PLATELET COUNT 168 K/MM3 (134-434); RBC 3.65 M/mm3 (3.60-5.2); RDW 13.1 % (11.6-15.6); WHITE BLOOD COUNT 5.1 K/mm3 (4.0-10.0)
[2018-04-29 15:53] LABS: URINE APPEARANCE SLCLOUDY; URINE BILIRUBIN NEGATIVE (<2.0 mg/dL); URINE COLOR AMBER; URINE GLUCOSE (UA) NEGATIVE (NEGATIVE); URINE KETONE 1+ (NEGATIVE); URINE LEUK ESTERASE NEGATIVE (NEGATIVE); URINE NITRITE NEGATIVE (NEGATIVE); URINE PROTEIN NEGATIVE (NEGATIVE); URINE UROBILINOGEN NEGATIVE mg/dL (0.2-1.0)
[2018-04-29 16:00] LABS: EPI CELLS FEW /HPF (FEW); URINE MUCUS RARE
[2018-04-29 16:01] LABS: ALBUMIN 4.1 g/dl (3.4-5.0); ANION GAP 8 (8-16); BILIRUBIN,TOTAL 0.2 mg/dL (0.2-1.0); BLOOD UREA NITROGEN 19 mg/dL (7-18); CALCIUM 8.6 mg/dL (8.5-10.1); CHLORIDE 108 mmol/L (98-107); CO2 26 mmol/L (21-32); CREATININE 0.7 mg/dL (0.55-1.02); GLUCOSE,RANDOM 88 mg/dL (74-106); POTASSIUM 3.7 mmol/L (3.5-5.1); SGOT/AST 27 U/L (15-37); SODIUM 142 mmol/L (136-145); TOT PROT 7.4 g/dl (6.4-8.2)
[2018-04-29 16:08] LABS: ALK PHOS 49 U/L (45-117); SGPT/ALT 44 U/L (12-78)
--- NOTE | 2018-04-29 17:35 | PDOC ---
Attending Attestation - Resident Resident Name: Pako Mckinney - ED Attending Attestation I have performed the following: I have examined & evaluated the patient, The case was reviewed & discussed with the resident, I agree w/resident's findings & plan, Exceptions are as noted - HPI HPI: 04/29/18 18:39 The patient is a 43 year old female with a significant past medical history of recent laparoscopic gastric sleeve, HTN, and sleep apnea who presents to the emergency department for evaluation of generalized weakness for 3 weeks since. The patient reports a 1 month history of generalized weakness and lightheadedness that she states began 2 weeks after her surgery on 03/22. The patient states she has been feeling "full, with no desire to drink fluids. She states she is able to eat but does not drink water because it makes her nauseous. At presentation, pt reports an associated symptom of lightheadedness when she stands. She also reports b/l flank pain since the surgery that is worse when she pushes on her flanks b/l. The patient reports having a laparoscopic gastric sleeve surgery on 03/[address] Art. Of note, the patient was advised by Dr. Art to visit the ED for IV fluid for dehydration last week, but she did not come. The patient denies cp, abdominal pain, f/c, n/v, sob, and any urinary/bowel symptoms. Allergies: NKDA Social History: Former smoker. Occasional alcohol consumption. No reported drug use. Surgical History: Appendectomy, (2x), Cholecystectomy, Gastric sleeve PCP: Dr. Pro - Physicial Exam PE: 04/29/18 18:54 GENERAL: Awake, alert, and fully oriented, in no acute distress HEAD: No signs of trauma EYES: PERRLA, EOMI, sclera anicteric, conjunctiva clear ENT: Auricles normal inspection, hearing grossly normal, nares patent, oropharynx clear without exudates. Moist mucosa NECK: Normal ROM, supple, no lymphadenopathy, JVD, or masses LUNGS: Breath sounds equal, clear to auscultation bilaterally. No wheezes, and no crackles HEART: Regular rate and rhythm, normal S1 and S2, no murmurs, rubs or gallops ABDOMEN: Soft, nontender, normoactive bowel sounds. No guarding, no rebound. No masses. +b/l mild flank ttp when pushing on ribs EXTREMITIES: Normal range of motion, no edema. No clubbing or cyanosis. No cords, erythema, or tenderness NEUROLOGICAL: Normal speech, cranial nerves intact, negative pronator drift, 5/ 5 strength in all 4 extremities, normal sensation to light touch in all 4 extremities, normal cerebellar exam, normal gait, normal reflexes and tone SKIN: Warm, Dry, normal turgor, no rashes or lesions noted. - Medical Decision Making 04/29/18 17:00 43yo F hx gastric sleeve done on 03/[address] Art presents to the ED with 3 weeks of lethargy and intermittent lightheadedness. Pt also reports b/l flank pain since the surgery. Vitals wnl. Exam with mild b/l flank reproducible tenderness to mild palpation, likely musculoskeletal, unlikey acute as it's not progressive and has been present since the surgery. Pt was told by Dr. Art and Dr. Pro (PMD) that she may be dehydrated and thus presents to the ED today for evaluation for this. Thus far, labs unremarkable other than very mild BUN elevation. Pt does admit to poor water intake so may be slightly dehydrated. WIll give 2L NS and reassess 04/29/18 18:01 Pt feels significantly better s/p 2L NS. Made UOP, tolerating PO. Encouraged pt to drink plenty of fluids and f/u with Dr. Pro/Kaelyn within 1 week. I discussed the physical exam findings, ancillary test results and final diagnoses with the patient. I answered all of the patient's questions. The patient was satisfied with the care received and felt comfortable with the discharge plan and treatment plan. The patient will call their primary care physician within 24 hours to arrange follow-up and will return to the Emergency Department with any new, persistent or worsening symptoms. Discharge Disposition - Diagnosis Weakness, Dehydration - Discharge Dispostion Disposition: HOME Condition at time of disposition: Improved Last Admission D/C Date: 03/23/18 Decision to Admit order: No - Referrals Referrals: Pako Mckinney RES [Emergency Midlevel Provider] - Meghan Pro MD [Primary Care Provider] - 7 days - Patient Instructions Printed Discharge Instructions: DI for Dehydration -- Adult Additional Instructions: Follow up with Dr. Bronson's and Dr Art within 1 week. As discussed, do your best to drink plenty of water throughout the day, in small sips if more comfortable. Return to the emergency department if you have any new, worsening, or concerning symptoms. - Post Discharge Activity
[2018-04-29 18:45] VITALS: BP 120/85; PULSE 57
== END 2018-04-29 18:45 | disposition home or self-care (01) ==
LOC: JER 14:27
PROC: 3E0337Z Introduction of Electrolytic and Water Balance Substance into Peripheral Vein, Percutaneous Approach (ICD-10-PCS; principal; 2018-04-29)
DX: E86.0 Dehydration (principal); Z98.84 Bariatric surgery status; I10 Essential (primary) hypertension; K21.9 Gastro-esophageal reflux disease without esophagitis; Z86.32 Personal history of gestational diabetes; Z87.891 Personal history of nicotine dependence
CPT/HCPCS: 36415; 80053; 81003; 81015; 84703; 85025; 96360; 96361; 99283-25; J7030

== ENCOUNTER 2019-10-25 10:58 | Emergency (ER) | payer OTHER ==
[2019-10-25 11:24] VITALS: BP 132/81; PULSE 71; TEMP 97.9; BMI 30.1
--- NOTE | 2019-10-25 13:25 | PDOC ---
History of Present Illness - General Chief Complaint: Injury Stated Complaint: FALL/LF ARM PAIN Time Seen by Provider: 10/25/19 12:45 History Source: Patient Exam Limitations: No Limitations - History of Present Illness Initial Comments: 10/25/19 12:54 Patient slipped and fell on ice this morning falling onto her left side buttocks , but then fell back against her left shoulder. Patient states felt a pop and a crack, and has been unable to move her arm since that time. 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 Denies hitting head, and no other area of injury. Occurred: reports: just prior to arrival, this morning Severity: reports: moderate, severe Pain Location: reports: upper extremity (Left shoulder) Method of Injury: Yes: direct blow, fall Modifying Factors: improves with: None, cold therapy Loss of Consciousness: no loss of consciousness Associated Symptoms (Fall): denies symptoms Past History - Travel Traveled outside of the country in the last 30 days: No Close contact w/someone who was outside of country & ill: No - Past Medical History Allergies/Adverse Reactions: Allergies Allergy/AdvReac Type Severity Reaction Status Date / Time No Known Allergies Allergy Verified 08/28/18 12:29 Home Medications: Ambulatory Orders Multivitamins [Tab-A-Vit -] 1 tab PO DAILY 04/29/18 Polyethylene Glycol 3350 [Miralax (For Daily Use) -] 17 gm PO DAILY PRN #1 bottle 08/28/18 Tramadol HCl 50 mg PO Q6H #10 tablet MDD 4 10/25/19 Asthma: No Cancer: No Cardiac Disorders: No CVA: No COPD: No CHF: No Dementia: No Diabetes: (gestational) GI Disorders: Yes (acid reflux) Disorders: No HTN: Yes Hypercholesterolemia: No Kidney Stones: Yes Liver Disease: No Seizures: No Thyroid Disease: No - Surgical History Abdominal Surgery: Yes Appendectomy: Yes Cholecystectomy: Yes GI Surgery: Yes (GASTRIC SLEEVE) - Immunization History Td Vaccination: Yes Immunization Up to Date: Yes - Psycho Social/Smoking Cessation Hx Smoking Status: No Smoking History: Never smoked Have you smoked in the past 12 months: No Number of Cigarettes Smoked Daily: 3 If you are a former smoker, when did you quit?: 2months Information on smoking cessation initiated: No 'Breaking Loose' booklet given: 10/23/17 Hx Alcohol Use: No Drug/Substance Use Hx: No Substance Use Type: Alcohol Hx Substance Use Treatment: No Review of Systems - Review of Systems Able to Perform ROS?: Yes Is the patient limited Citizen Of [place] proficient: Yes Constitutional: Yes: Symptoms Reported, See HPI. No: Fever, Malaise HEENTM: Yes: See HPI. No: Symptoms Reported Respiratory: Yes: See HPI. No: Symptoms reported, Cough Musculoskeletal: Yes: Symptoms Reported, See HPI, Joint Pain, Joint Swelling Integumentary: Yes: Symptoms Reported, See HPI, Bruising Neurological: Yes: Symptoms reported, See HPI. No: Paresthesia All Other Systems: Reviewed and Negative *Physical Exam - Vital Signs Last Vital Signs Temp Pulse Resp BP Pulse Ox 97.9 F 71 17 132/81 99 10/25/19 11:22 10/25/19 11:22 10/25/19 11:22 10/25/19 11:22 10/25/19 11:22 - Physical Exam General Appearance: Yes: Nourished, Appropriately Dressed HEENT: positive: DIANA, Normal ENT Inspection, TMs Normal, Pharynx Normal Neck: positive: Tender, Supple. negative: Lymphadenopathy (R), Lymphadenopathy (L) Respiratory/Chest: positive: Lungs Clear, Normal Breath Sounds. negative: Chest Tender Cardiovascular: positive: Regular Rhythm Extremity: positive: Normal Capillary Refill, Normal Inspection, Normal Range of Motion, Tender ( had has very limited range of motion to left shoulder capsule, with some tenderness along the deltoid insertions. But has no true crepitus or step-offs to clavicle/scapula) Integumentary: positive: Normal Color, Dry, Warm, Swelling (With tenderness to the upper deltoid area. Has some mild duskiness indicating some early bruising. Range of motion intact to fingers wrist and elbow but has inability to abduct past 90 degrees or forward flex without tenderness to shoulder.), Bruising Neurologic: positive: acquisitions assistant II-XII NML intact, Fully Oriented, Alert, Normal Mood/ Affect, Normal Response, Motor Strength 5/5 ED Progress Note - Progress Note Progress Note: 10/25/19 17:14 Left shoulder contusion/swelling status post fall and patient anticoagulated with Plavix. X-ray negative for fractures or dislocation ice pack provided, sling provided, and will follow-up with orthopedic this week. Discharge - Discharge Information Problems reviewed: Yes Clinical Impression/Diagnosis: Contusion of shoulder, left Qualifiers: Encounter type: initial encounter Qualified Code(s): S40.012A - Contusion of left shoulder, initial encounter Condition: Stable Disposition: HOME - Admission No - Additional Discharge Information Prescriptions: Tramadol HCl 50 mg PO Q6H #10 tablet MDD 4 - Follow up/Referral Referrals: Chris Kam MD [Primary Care Provider] - Agus Rubin MD [Staff Physician] - - Patient Discharge Instructions Patient Printed Discharge Instructions: DI for Contusion Additional Instructions: Rest, ice to area on and off for 15 minutes 4-6 times a day Avoid heavy lifting or exercise until pain and swelling is resolved or until further directed Keep area highly elevated to reduce swelling Use splints/Sylvain wrap as directed Followup with orthopedist in one to 2 days if not improving, if significantly improved may wait one week for followup with orthopedist May use tramadol every 6 hours as needed for severe pain Otherwise Tylenol for mild to moderate pain - Post Discharge Activity
== END 2019-10-25 13:39 | disposition home or self-care (01) ==
LOC: JERFT 10:58
DX: S40.012A Contusion of left shoulder, initial encounter (principal); W00.2XXA Other fall from one level to another due to ice and snow, initial encounter; Y93.89 Activity, other specified; Y92.89 Other specified places as the place of occurrence of the external cause; Y99.8 Other external cause status; I10 Essential (primary) hypertension; E78.00 Pure hypercholesterolemia, unspecified; Z86.73 Personal history of transient ischemic attack (TIA), and cerebral infarction without residual deficits; I25.2 Old myocardial infarction; Z79.02 Long term (current) use of antithrombotics/antiplatelets; K21.9 Gastro-esophageal reflux disease without esophagitis; Z86.32 Personal history of gestational diabetes; Z90.49 Acquired absence of other specified parts of digestive tract; Z98.84 Bariatric surgery status
CPT/HCPCS: 73030-TC-LT-FY; 99282-25

== ENCOUNTER 2021-01-27 21:01 | Inpatient (IN) | payer OTHER ==
[2021-01-27 23:38] LABS: BASO % 0.3 % (0-2.0); EOS % 0.3 % (0-4.5); HEMATOCRIT 40.8 % (32.4-45.2); HEMOGLOBIN 13.8 GM/dL (10.7-15.3); LYMPH % 7.1 % (8-40); MCH 30.6 pg (25.7-33.7); MCHC 33.7 g/dl (32.0-36.0); MEAN CELL VOLUME 90.9 fl (80-96); MEAN PLT VOLUME 8.2 fl (7.5-11.1); MONO % 4.4 % (3.8-10.2); NEUT % 87.9 % (42.8-82.8); PLATELET COUNT 243 K/MM3 (134-434); RBC 4.49 M/mm3 (3.60-5.2); RDW 13.6 % (11.6-15.6); WHITE BLOOD COUNT 13.4 K/mm3 (4.0-10.0)
[2021-01-28 00:03] LABS: URINE APPEARANCE CLEAR; URINE BILIRUBIN NEGATIVE (NEGATIVE); URINE COLOR DK YELLOW; URINE GLUCOSE (UA) NEGATIVE (NEGATIVE); URINE KETONE TRACE (NEGATIVE); URINE LEUK ESTERASE NEGATIVE (NEGATIVE); URINE NITRITE NEGATIVE (NEGATIVE); URINE PROTEIN TRACE (NEGATIVE)
[2021-01-28 00:06] LABS: CHLORIDE 105 mmol/L (98-107); POTASSIUM 4.2 mmol/L (3.5-5.1); SODIUM 139 mmol/L (136-145)
[2021-01-28 00:08] LABS: CALCIUM 9.5 mg/dL (8.5-10.1)
[2021-01-28 00:10] LABS: ALBUMIN 4.4 g/dl (3.4-5.0); ANION GAP 6 MMOL/L (8-16); CO2 28 mmol/L (21-32); GLUCOSE,RANDOM 93 mg/dL (74-106)
[2021-01-28 00:13] LABS: BILIRUBIN,TOTAL 0.6 mg/dL (0.2-1); CREATININE 0.8 mg/dL (0.55-1.3); SGOT/AST 276 U/L (15-37); SGPT/ALT 169 U/L (13-61); TOT PROT 8.7 g/dl (6.4-8.2)
[2021-01-28 00:14] LABS: ALK PHOS 123 U/L (45-117)
[2021-01-28 00:38] LABS: LIPASE 6516 U/L (73-393)
[2021-01-28] MEDS ORDERED: SODIUM CHLORIDE 1,000 ML IV STA (00:38)
[2021-01-28] MEDS ORDERED: SODIUM CHLORIDE 1,000 ML IV SCH (02:00)
[2021-01-28] MEDS ORDERED: morphine CARPU-JECT 2 MG/1 ML DISP.SYRIN IVPUSH ONE (02:06)
[2021-01-28] MEDS ORDERED: MORPHINE SULFATE 2 MG/ML VIAL ONE ×2 (02:17→08:28)
[2021-01-28] MEDS ORDERED: DEXAMETHASONE SOD PHOSPHATE 10 MG/1 ML VIAL ONE (04:15)
[2021-01-28] MEDS ORDERED: ACETAMINOPHEN 325 MG TABLET (FP) PO PRN (06:19)
[2021-01-28] MEDS ORDERED: ONDANSETRON 4 MG/2 ML VIAL IVPUSH PRN (06:21)
[2021-01-28] MEDS: MORPHINE SULFATE 2 MG/ML VIAL IVPUSH PRN ×4 (08:35→23:36)
[2021-01-28] MEDS: LACTATED RINGERS SOLUTION 1,000 ML IV SCH ×2 (08:35→19:42)
[2021-01-28 10:40] LABS: BASO % 0.7 % (0-2.0); EOS % 3.9 % (0-4.5); HEMATOCRIT 35.7 % (32.4-45.2); HEMOGLOBIN 12.1 GM/dL (10.7-15.3); LYMPH % 19.4 % (8-40); MCH 31.1 pg (25.7-33.7); MCHC 33.9 g/dl (32.0-36.0); MEAN CELL VOLUME 91.6 fl (80-96); MEAN PLT VOLUME 8.1 fl (7.5-11.1); MONO % 4.5 % (3.8-10.2); NEUT % 71.5 % (42.8-82.8); PLATELET COUNT 218 K/MM3 (134-434); RDW 13.8 % (11.6-15.6); WHITE BLOOD COUNT 6.2 K/mm3 (4.0-10.0)
[2021-01-28] MEDS: NICOTINE 7 MG/24 HOURS TOPICAL PATCH TD SCH (10:54)
[2021-01-28] MEDS: POLYETHYLENE GLYCOL 3350 119 GM BTL PO SCH (10:54)
[2021-01-28] MEDS ORDERED: amLODIPine BESYLATE 5 MG TABLET (FP) ONE (10:56)
[2021-01-28] MEDS ORDERED: ENOXAPARIN NA (PORCINE) 40 MG/0.4 ML DISP.SYRIN SQ ONE (10:58)
[2021-01-28] MEDS: ENOXAPARIN NA (PORCINE) 40 MG/0.4 ML DISP.SYRIN SQ SCH (11:01)
[2021-01-28] MEDS: amLODIPine BESYLATE 10 MG TABLET (FP) PO SCH (11:01)
[2021-01-28 11:05] LABS: POTASSIUM 4.2 mmol/L (3.5-5.1)
[2021-01-28 11:09] LABS: ALBUMIN 3.9 g/dl (3.4-5.0); BLOOD UREA NITROGEN 15.2 mg/dL (7-18); CALCIUM 9.2 mg/dL (8.5-10.1); MAGNESIUM 2.3 mg/dL (1.8-2.4)
[2021-01-28 11:11] LABS: CREATININE 0.8 mg/dL (0.55-1.3); PHOSPHOROUS 3.2 mg/dL (2.5-4.9)
[2021-01-28 11:13] LABS: BILIRUBIN,TOTAL 0.7 mg/dL (0.2-1); CHOLESTEROL 124 mg/dL (50-200); TOT PROT 7.2 g/dl (6.4-8.2); TRIGLYCERIDES 66 mg/dL (0-150)
[2021-01-28 11:14] LABS: LDL CHOLESTEROL (ONLY SJRH) 47 mg/dL (5-100)
[2021-01-28 11:15] LABS: HDL CHOLESTEROL 65 mg/dL (40-60)
[2021-01-28] MEDS: PANTOPRAZOLE SODIUM 40 MG VIAL IVPUSH SCH (11:59)
[2021-01-28 15:03] VITALS: BMI 30.1
[2021-01-28] MEDS: ATORVASTATIN CA 40 MG TABLET (FP) PO SCH (22:39)
[2021-01-29] MEDS: LACTATED RINGERS SOLUTION 1,000 ML IV SCH ×4 (02:42→18:19)
[2021-01-29] MEDS: MORPHINE SULFATE 2 MG/ML VIAL IVPUSH PRN (04:58)
[2021-01-29] MEDS: ASPIRIN 81 MG CHEWABLE TABLETS PO SCH (10:28)
[2021-01-29] MEDS: CLOPIDOGREL BISULFATE 75 MG TABLET (FP) PO SCH (10:28)
[2021-01-29] MEDS: ENOXAPARIN NA (PORCINE) 40 MG/0.4 ML DISP.SYRIN SQ SCH (10:29)
[2021-01-29] MEDS: amLODIPine BESYLATE 10 MG TABLET (FP) PO SCH (10:29)
[2021-01-29] MEDS: PANTOPRAZOLE SODIUM 40 MG VIAL IVPUSH SCH (10:29)
[2021-01-29] MEDS ORDERED: ACETAMINOPHEN 1000 MG/100 ML VIAL (NON FORMULARY) IVPB PRN (11:15)
[2021-01-29] MEDS: POLYETHYLENE GLYCOL 3350 119 GM BTL PO SCH (11:48)
[2021-01-29] MEDS: NICOTINE 7 MG/24 HOURS TOPICAL PATCH TD SCH (11:49)
[2021-01-29 13:08] LABS: HEP B CORE AB, TOT Negative (Negative)
[2021-01-29] MEDS: ATORVASTATIN CA 40 MG TABLET (FP) PO SCH (21:29)
[2021-01-29] MEDS: URSODIOL 300 MG CAPSULE PO SCH (21:29)
[2021-01-30] MEDS: LACTATED RINGERS SOLUTION 1,000 ML IV SCH ×2 (00:07→06:41)
[2021-01-30] MEDS ORDERED: MELATONIN 5 MG TABLETS PO ONE (00:14)
[2021-01-30 09:14] LABS: BASO % 0.9 % (0-2.0); EOS % 3.9 % (0-4.5); HEMATOCRIT 35.7 % (32.4-45.2); HEMOGLOBIN 12.3 GM/dL (10.7-15.3); LYMPH % 31.7 % (8-40); MCHC 34.4 g/dl (32.0-36.0); MEAN CELL VOLUME 90.2 fl (80-96); MEAN PLT VOLUME 8.3 fl (7.5-11.1); MONO % 5.1 % (3.8-10.2); NEUT % 58.4 % (42.8-82.8); PLATELET COUNT 181 K/MM3 (134-434); RBC 3.95 M/mm3 (3.60-5.2); RDW 13.1 % (11.6-15.6); WHITE BLOOD COUNT 3.9 K/mm3 (4.0-10.0)
[2021-01-30 09:17] LABS: POTASSIUM 4.1 mmol/L (3.5-5.1)
[2021-01-30 09:22] LABS: ALBUMIN 3.7 g/dl (3.4-5.0); BLOOD UREA NITROGEN 8.7 mg/dL (7-18)
[2021-01-30 09:23] LABS: CALCIUM 9.3 mg/dL (8.5-10.1)
[2021-01-30 09:26] LABS: CREATININE 0.8 mg/dL (0.55-1.3)
[2021-01-30 09:27] LABS: BILIRUBIN,TOTAL 0.5 mg/dL (0.2-1); TOT PROT 7.1 g/dl (6.4-8.2)
[2021-01-30] MEDS: CLOPIDOGREL BISULFATE 75 MG TABLET (FP) PO SCH (10:13)
[2021-01-30] MEDS: POLYETHYLENE GLYCOL 3350 119 GM BTL PO SCH (10:13)
[2021-01-30] MEDS: amLODIPine BESYLATE 10 MG TABLET (FP) PO SCH (10:13)
[2021-01-30] MEDS: PANTOPRAZOLE SODIUM 40 MG VIAL IVPUSH SCH (10:13)
[2021-01-30] MEDS: URSODIOL 300 MG CAPSULE PO SCH (10:13)
[2021-01-30] MEDS: ENOXAPARIN NA (PORCINE) 40 MG/0.4 ML DISP.SYRIN SQ SCH (10:13)
[2021-01-30] MEDS: ASPIRIN 81 MG CHEWABLE TABLETS PO SCH (10:13)
[2021-01-30] MEDS: NICOTINE 7 MG/24 HOURS TOPICAL PATCH TD SCH (10:14)
[2021-01-30 10:21] VITALS: BP 135/85; PULSE 57; TEMP 98.7
== END 2021-01-30 14:12 | disposition home or self-care (01) | DRG 282 ==
LOC: JER 21:01 → JERBED 01-28 05:24 → J5S 01-28 13:56
PROVIDERS: ADMIT Internal Medicine; ATTEND Internal Medicine
DX: K85.90 Acute pancreatitis without necrosis or infection, unspecified (principal); E86.0 Dehydration; R10.9 Unspecified abdominal pain; R74.01 Elevation of levels of liver transaminase levels; R00.1 Bradycardia, unspecified; I10 Essential (primary) hypertension; E66.9 Obesity, unspecified; Z68.30 Body mass index [BMI] 30.0-30.9, adult; I25.10 Atherosclerotic heart disease of native coronary artery without angina pectoris; Z95.5 Presence of coronary angioplasty implant and graft; F17.210 Nicotine dependence, cigarettes, uncomplicated
CPT/HCPCS: 36415; 71046-TC-FY; 74177-TC; 74181-TC; 80053; 80061; 81003; 82550; 82553; 83690; 83721; 83735; 84100; 84439; 84443; 84478; 84484; 85025; 86704; 86706; 86707; 86708; 86709; 86803; 87086; 87340; 93005; 93010; 99285-25; C9803; J0131; U0003

== ENCOUNTER 2023-01-19 18:55 | Emergency (ER) | payer OTHER ==
[2023-01-19 19:09] VITALS: BP 134/78; RESP 18; TEMP 98.1; BMI 30.1
[2023-01-19] MEDS ORDERED: ACETAMINOPHEN 325 MG TABLET (FP) PO ONE (20:35)
[2023-01-19 21:20] LABS: BASO % 0.4 % (0-2.0); HEMATOCRIT 39.8 % (32.4-45.2); HEMOGLOBIN 13.2 GM/dL (10.7-15.3); LYMPH % 14.1 % (8-40); MCH 29.3 pg (25.7-33.7); MCHC 33.3 g/dl (32.0-36.0); MEAN CELL VOLUME 87.9 fl (80-96); MEAN PLT VOLUME 7.7 fl (7.5-11.1); MONO % 4.4 % (3.8-10.2); NEUT % 80.1 % (42.8-82.8); PLATELET COUNT 194 10^3/uL (134-434); RBC 4.52 M/mm3 (3.60-5.2); RDW 13.3 % (11.6-15.6); WHITE BLOOD COUNT 7.9 K/mm3 (4.0-10.0)
[2023-01-19 21:35] LABS: INR 1.32 (0.83-1.09); PROTHROMBIN TIME (PATIENT) 15.3 SEC (9.7-13.0)
[2023-01-19 21:42] LABS: CREATININE 0.7 mg/dL (0.55-1.3)
[2023-01-19 21:43] LABS: BILIRUBIN,TOTAL 0.4 mg/dL (0.2-1); TOT PROT 7.7 g/dl (6.4-8.2)
[2023-01-19] MEDS ORDERED: ACETAMINOPHEN 325 MG TABLET (FP) ONE (21:51)
[2023-01-19] MEDS ORDERED: morphine CARPU-JECT 4 MG/1 ML DISP.SYRIN IVPUSH ONE (22:10)
[2023-01-19] MEDS ORDERED: morphine SULFATE 4 MG/ML VIAL ONE (23:03)
[2023-01-20 02:10] VITALS: PULSE 62
== END 2023-01-20 02:37 | disposition left against medical advice (07) ==
LOC: JER 18:55
PROC: 3E033GC Introduction of Other Therapeutic Substance into Peripheral Vein, Percutaneous Approach (ICD-10-PCS; principal; 2023-01-19)
DX: R09.02 Hypoxemia (principal); R10.30 Lower abdominal pain, unspecified; R53.1 Weakness; M25.572 Pain in left ankle and joints of left foot; M25.532 Pain in left wrist; Y04.2XXA Assault by strike against or bumped into by another person, initial encounter; Y92.89 Other specified places as the place of occurrence of the external cause
CPT/HCPCS: 36415; 70450-TC; 71046-TC-FY; 71275-TC; 72125-TC; 72170-TC-FY; 73030-TC-LT-FY; 73590-TC-LT-FY; 73610-TC-LT-FY; 73630-TC-LT; 74174-TC; 80053; 80061; 82962; 83036; 83605; 84484; 85025; 85610; 85730; 86850; 86900; 86901; 93005; 93010; 99285-25; Q9967

== ENCOUNTER 2025-05-10 12:23 | Inpatient (IN) | payer OTHER ==
[2025-05-10 12:40] VITALS: BMI 29.5
[2025-05-10] MEDS: LACTATED RINGERS SOLUTION 1000 ML INFUS.BAG IV ONE (14:00)
[2025-05-10 14:20] LABS: ABSOLUTE IMMATURE GRANULOCYTES 0.01 x10^3/uL (0.0-0.031); BASOPHILS # 0.02 x10^3/uL (0.01-0.08); EOSINOPHIL % 2.1 % (0.7-5.8); EOSINOPHILS # 0.11 x10^3/uL (0.04-0.36); MCHC 33.0 g/dl (32.2-35.5); MEAN CELL VOLUME 90.1 fl (79.4-94.8); MEAN PLT VOLUME 9.4 fl (9.4-12.3); MONOCYTE # 0.38 x10^3/uL (0.24-0.86); MONOCYTE % 7.3 % (4.7-12.5); RDW 13.0 % (12.2-17.1)
[2025-05-10 14:31] LABS: INR 1.14 (0.83-1.09); PROTHROMBIN TIME (PATIENT) 12.5 SEC (9.7-13.0)
[2025-05-10 14:34] LABS: ACTIVATED PTT 27.8 SECONDS (25.2-36.5)
[2025-05-10 14:52] LABS: CO2 27.0 mmol/L (21-32); GLUCOSE,RANDOM 85.0 mg/dL (74-106)
[2025-05-10 14:56] LABS: CREATININE 0.7 mg/dL (0.55-1.3); SGPT/ALT 36.0 U/L (13-61)
[2025-05-10 14:57] LABS: TOT PROT 6.8 g/dl (6.4-8.2)
[2025-05-10 14:58] LABS: ALK PHOS 67.0 U/L (45-117)
[2025-05-10 15:07] LABS: SGOT/AST 26.0 U/L (15-37)
[2025-05-10 15:28] LABS: EPI CELLS >36 /uL (0-25.1); HYALINE CASTS 5 /uL (0-3.1); URINE APPEARANCE CLOUDY; URINE BACTERIA 1425 /uL (0-1359); URINE BILIRUBIN NEGATIVE (NEGATIVE); URINE COLOR YELLOW; URINE GLUCOSE (UA) NEGATIVE (NEGATIVE); URINE KETONE TRACE (NEGATIVE); URINE LEUK ESTERASE 1+ (NEGATIVE); URINE NITRITE NEGATIVE (NEGATIVE); URINE PROTEIN 1+ (NEGATIVE); URINE RBC 94 /uL (0-23.9); URINE UROBILINOGEN 0.2 mg/dL (0.2-1.0); URINE WBC 37 /uL (0-25.8)
[2025-05-10] MEDS ORDERED: ACETAMINOPHEN INJECTION 100 ML ONE ×2 (15:29→23:18)
[2025-05-10] MEDS: ACETAMINOPHEN 1000 MG/100 ML BAG IVPB ONE ×2 (15:35→23:24)
[2025-05-10 15:46] LABS: HCV DIAGNOSTIC IN-HOUSE W/RFLX NON-REACTIVE (NONREACTIVE); HIV INTERPRETATION NEGATIVE (NEGATIVE)
[2025-05-10] MEDS ORDERED: CEPHALEXIN MONOHYDRATE 500 MG CAPSULE (UD) ONE (19:23)
[2025-05-10] MEDS: CEPHALEXIN MONOHYDRATE 500 MG CAPSULE (UD) PO ONE (19:25)
[2025-05-10] MEDS: SODIUM CHLORIDE 0.9% 500 ML INFUS.BAG IV ONE (22:41)
[2025-05-10] MEDS ORDERED: LIDOCAINE HCL 2% JELLY 11 ML TP ONE (22:50)
[2025-05-11] MEDS: DEXTROSE 5%-0.45% SALINE 1,000 ML IV SCH (01:56)
[2025-05-11] MEDS: ACETAMINOPHEN 1000 MG/100 ML BAG IVPB PRN (05:35)
[2025-05-11 08:42] LABS: ABSOLUTE IMMATURE GRANULOCYTES 0.01 x10^3/uL (0.0-0.031); BASOPHILS # 0.03 x10^3/uL (0.01-0.08); EOSINOPHIL % 2.2 % (0.7-5.8); EOSINOPHILS # 0.10 x10^3/uL (0.04-0.36); MCHC 33.4 g/dl (32.2-35.5); MEAN CELL VOLUME 89.0 fl (79.4-94.8); MEAN PLT VOLUME 10.3 fl (9.4-12.3); MONOCYTE # 0.25 x10^3/uL (0.24-0.86); MONOCYTE % 5.6 % (4.7-12.5); RDW 12.7 % (12.2-17.1)
[2025-05-11 09:02] LABS: CO2 28.0 mmol/L (21-32); GLUCOSE,RANDOM 80.0 mg/dL (74-106)
[2025-05-11 09:05] LABS: CREATININE 0.6 mg/dL (0.55-1.3)
[2025-05-11] MEDS: CEFTRIAXONE 1 GM in DEXTROSE 5%-WATER - 50 ML IVPB SCH (09:18)
[2025-05-11] MEDS ORDERED: ONDANSETRON 4 MG/2 ML VIAL IVPB PRN (10:31)
[2025-05-11] MEDS: PANTOPRAZOLE SODIUM 40 MG VIAL IVPUSH SCH (11:03)
[2025-05-11] MEDS: ENOXAPARIN NA (PORCINE) 60 MG/0.6 ML DISP.SYRIN SQ SCH (11:03)
[2025-05-11] MEDS ORDERED: BENZOCAINE 20% UNIT DOSE SPRAY MM PRN (13:03)
[2025-05-11 21:34] VITALS: RESP 18
[2025-05-12 08:26] LABS: ABSOLUTE IMMATURE GRANULOCYTES 0.00 x10^3/uL (0.0-0.031); BASOPHILS # 0.02 x10^3/uL (0.01-0.08); EOSINOPHIL % 2.7 % (0.7-5.8); EOSINOPHILS # 0.09 x10^3/uL (0.04-0.36); MCHC 32.9 g/dl (32.2-35.5); MEAN CELL VOLUME 90.0 fl (79.4-94.8); MEAN PLT VOLUME 10.0 fl (9.4-12.3); MONOCYTE # 0.19 x10^3/uL (0.24-0.86); MONOCYTE % 5.7 % (4.7-12.5); RDW 12.8 % (12.2-17.1)
[2025-05-12 09:32] LABS: CO2 28.0 mmol/L (21-32); GLUCOSE,RANDOM 89.0 mg/dL (74-106)
[2025-05-12 09:36] LABS: CREATININE 0.6 mg/dL (0.55-1.3); SGOT/AST 22.0 U/L (15-37); SGPT/ALT 29.0 U/L (13-61); TOT PROT 6.0 g/dl (6.4-8.2)
[2025-05-12 09:39] LABS: ALK PHOS 59.0 U/L (45-117)
[2025-05-12 13:58] VITALS: BP 101/63; PULSE 61; TEMP 98.1
== END 2025-05-12 14:00 | disposition home or self-care (01) | DRG 247 ==
LOC: JER 12:23 → JERBED 21:47 → J6S 05-11 02:22
PROVIDERS: ADMIT Internal Medicine; ATTEND Internal Medicine
DX: K56.600 Partial intestinal obstruction, unspecified as to cause (principal); I25.10 Atherosclerotic heart disease of native coronary artery without angina pectoris; I10 Essential (primary) hypertension; E78.5 Hyperlipidemia, unspecified
CPT/HCPCS: 36415; 71045-TC-FY; 74019-TC-FY; 74177-TC; 80048; 80053; 81003; 83690; 83735; 84100; 84484; 85025; 85610; 85730; 86803; 87086; 87389; 87637-QW; 93005; 93010; 99285-25; Q9967